=== PATIENT | male | born 1980 | race Caucasian/White ===

== ENCOUNTER 2017-03-23 15:34 | Emergency (ER) | payer BC ==
[2017-03-23 16:15] VITALS: BP 142/85
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
[2017-03-23] MEDS ORDERED: Ibuprofen TAB* 600 MG PO ONE ×2 (16:51→17:51)
[2017-03-23] MEDS ORDERED: Lidocaine 1%* 5 ML VIAL ONE (16:53)
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
[2017-03-23] MEDS ORDERED: cefTRIAXone VIAL(*) 1,000 MG VIAL IM ONE (17:45)
[2017-03-23] MEDS ORDERED: Tetan/Diph/Pertus SYR(Tdap)* 0.5 ML SYR(BOOSTRIX) use SYR IM ONE (17:45)
[2017-03-23] MEDS ORDERED: Lidocaine 1% MPF* 2 ML VIAL ONE (17:50)
== END 2017-03-23 18:09 | disposition home or self-care (01) ==
LOC: UCCORT 15:34
DX: S81.012A Laceration without foreign body, left knee, initial encounter (principal); S30.0XXA Contusion of lower back and pelvis, initial encounter; S80.02XA Contusion of left knee, initial encounter; V29.88XA Motorcycle rider (driver) (passenger) injured in other specified transport accidents, initial encounter; Z23 Encounter for immunization; F17.210 Nicotine dependence, cigarettes, uncomplicated
CPT/HCPCS: 12001; 12002; 72070; 72110; 90471; 90715; 96372; 99213; A9270-GY; G0463; J0696

== ENCOUNTER 2017-04-04 11:08 | Emergency (ER) | payer BC ==
[2017-04-04 12:19] VITALS: BP 119/79
--- NOTE | 2017-04-04 12:45 | UC ---
HPI Wound/Suture Re-check - HPI Summary HPI Summary: Three sutures placed in left knee on 03/23/17. TRIED TO TAKE SUTURES OUT HIMSELF, TRIMMED TOPS OF SUTURES OFF. - History Of Current Complaint Chief Complaint: [employer] Stated Complaint: SUTURE REMOVAL Time Seen by Provider: 04/04/17 12:17 Hx Obtained From: Patient Onset/Duration: Sudden Onset, Lasting Weeks Severity: Mild - Allergies/Home Medications Allergies/Adverse Reactions: Allergies Allergy/AdvReac Type Severity Reaction Status Date / Time No Known Allergies Allergy Verified 04/04/17 12:15 PMH/Surg Hx/FS Hx/Imm Hx Previously Healthy: Yes - Surgical History Surgical History: Yes Surgery Procedure, Year, and Place: appendectomy 1993. nasal repair - Family History Known Family History: Positive: Cardiac Disease - father, Hypertension, Diabetes - Social History Occupation: Employed Full-time Lives: With Family Alcohol Use: None Substance Use Type: None Smoking Status (MU): Former Smoker Type: Smokeless Tobacco Amount Used/How Often: 1 can daily Length of Time of Smoking/Using Tobacco: 14 years Have You Smoked in the Last Year: No When Did the Patient Quit Smoking/Using Tobacco: 2010 - Immunization History Most Recent Influenza Vaccination: Not the Season Review of Systems Constitutional: Negative Skin: Other - 3 X LEFT KNEE EMBEDDED SUTURES Eyes: Negative ENT: Negative Respiratory: Negative Cardiovascular: Negative Gastrointestinal: Negative Genitourinary: Negative Motor: Negative Neurovascular: Negative Musculoskeletal: Negative Neurological: Negative Psychological: Negative Is Patient Immunocompromised?: No All Other Systems Reviewed And Are Negative: Yes Physical Exam Triage Information Reviewed: Yes Appearance: Well-Appearing, No Pain Distress, Well-Nourished Vital Signs: Initial Vital Signs Temp 98.3 F 04/04/17 12:16 Pulse 85 04/04/17 12:16 Resp 16 04/04/17 12:16 BP 119/79 04/04/17 12:16 Pulse Ox 99 04/04/17 12:16 Vital Signs Reviewed: Yes Eye Exam: Normal ENT Exam: Normal ENT: Positive: Normal ENT inspection Dental Exam: Normal Neck exam: Normal Neck: Positive: Supple, Nontender, No Lymphadenopathy Respiratory Exam: Normal Respiratory: Positive: Chest non-tender, Lungs clear, Normal breath sounds, No respiratory distress, No accessory muscle use Cardiovascular Exam: Normal Cardiovascular: Positive: RRR, No Murmur, Pulses Normal, Brisk Capillary Refill Abdominal Exam: Normal Musculoskeletal Exam: Normal Musculoskeletal: Positive: Strength Intact, ROM Intact, No Edema Neurological Exam: Normal Neurological: Positive: Fatigued Skin: Positive: Other - 2 X VERICAL MATRESS SUTURES AND ONE SIMPLE INTERRUPTED SUTURE EMBEDDED IN LEFT KNEE Procedures - Procedure Summary Procedure Summary: 3 X EMBEDDED SUTURES (WITHOUT LEADS) REMOVED FROM LEFT KNEE; USING SPLINTER FORCEPTS AND SCISSORS Course/Dx - Differential Dx - Laceration/Wound Differential Diagnoses: Suture Removal Provider Diagnoses: 3 X SUTURE REMOVAL LEFT KNEE Discharge - Discharge Plan Condition: Stable Disposition: HOME Patient Education Materials: Stitches Removal (ED) Referrals: [facility] [Outside] No Primary Care Phys,NOPCP [Primary Care Provider] -
== END 2017-04-04 12:47 | disposition home or self-care (01) ==
LOC: UCCORT 11:08
DX: S81.012D Laceration without foreign body, left knee, subsequent encounter (principal); X58.XXXD Exposure to other specified factors, subsequent encounter; Y92.9 Unspecified place or not applicable; Z87.891 Personal history of nicotine dependence